=== PATIENT | female | born 1945 | race American Indian/Alaskan Native ===

== ENCOUNTER 2019-02-06 19:44 | Emergency (ER) | payer MEDICARE ==
[2019-02-06] MEDS ORDERED: TORADOL IV ONE (20:21)
[2019-02-06] MEDS ORDERED: BENADRYL IV ONE (20:22)
[2019-02-06] MEDS ORDERED: IMITREX PO ONE (20:24)
[2019-02-06] MEDS ORDERED: ZOFRAN IV ONE (20:25)
[2019-02-06] MEDS ORDERED: ULTRAM PO ONE (20:57)
--- NOTE | 2019-02-06 21:35 | Emergency Department Report ---
ED General Adult HPI - General Chief complaint: Headache Stated complaint: MIGRAINE AND EARACHE Time Seen by Provider: 02/06/19 20:10 Source: patient Mode of arrival: Ambulatory Limitations: No Limitations - History of Present Illness Initial comments: Patient is a 73-year-old -[place] female with a history of chronic migraine headaches who presents to the ED with acute exacerbation of chronic migraine headaches for the last one month intermittently, worse in the last 2 days. Patient also complains of nausea and photophobia. Patient denies chest pain, shortness of breath, change in vision, vomiting, palpitations, dizziness, neck pain, back pain, nasal and sinus congestion, sore throat, fever or chills, syncope or seizures. Patient states that she has been taking ynea-byo-npttumu medications with no relief. Patient states that she has not been to a neurologist for a long time. Patient also states that she is currently going through stressful moment in her life and that these may contribute significantly for her chronic migraine exacerbations. MD Complaint: Migraine headache exacerbations -: Gradual, month(s) (1) Location: head Radiation: non-radiation Severity scale (0 -10): 7 Quality: aching, sharp Consistency: intermittent Improves with: none Worsens with: none Associated Symptoms: denies other symptoms, headaches, nausea/vomiting. denies: confusion, chest pain, cough, diaphoresis, fever/chills, loss of appetite, malaise, rash, seizure, shortness of breath, syncope, weakness Treatments Prior to Arrival: none - Related Data Previous Rx's Medication Instructions Recorded Last Taken Type Promethazine [Phenergan] 25 mg PO Q6HR PRN #24 tab 02/06/19 Unknown Rx tiZANidine [Zanaflex 4mg TAB] 4 mg PO Q8H PRN #15 tablet 02/06/19 Unknown Rx traMADol [Ultram] 50 mg PO Q6HR PRN #15 tablet 02/06/19 Unknown Rx Allergies Allergy/AdvReac Type Severity Reaction Status Date / Time acetaminophen [From Fioricet] Allergy Nausea Verified 02/06/19 19:52 butalbital [From Fioricet] Allergy Nausea Verified 02/06/19 19:52 caffeine [From Fioricet] Allergy Nausea Verified 02/06/19 19:52 metoclopramide [From Reglan] Allergy Unknown Verified 02/06/19 19:52 prochlorperazine Allergy Unknown Verified 02/06/19 19:52 [From Compazine] ED Review of Systems ROS: Stated complaint: MIGRAINE AND EARACHE Other details as noted in HPI Constitutional: denies: chills, fever Eyes: denies: eye pain, eye discharge, vision change ENT: denies: ear pain, throat pain Respiratory: denies: cough, shortness of breath, wheezing Cardiovascular: denies: chest pain, palpitations Endocrine: no symptoms reported Gastrointestinal: nausea. denies: abdominal pain, vomiting, diarrhea, hematemesis, hematochezia Genitourinary: denies: urgency, dysuria, discharge Musculoskeletal: denies: back pain, joint swelling, arthralgia Skin: denies: rash, lesions Neurological: headache. denies: weakness, paresthesias Psychiatric: denies: anxiety, depression Hematological/Lymphatic: denies: easy bleeding, easy bruising ED Past Medical Hx - Past Medical History Previous Medical History?: No Hx Headaches / Migraines: Yes - Surgical History Past Surgical History?: Yes Additional Surgical History: C/SX2 - Social History Smoking Status: Never Smoker Substance Use Type: None - Medications Home Medications: Home Medications Medication Instructions Recorded Confirmed Last Taken Type Promethazine [Phenergan] 25 mg PO Q6HR PRN #24 tab 02/06/19 Unknown Rx tiZANidine [Zanaflex 4mg TAB] 4 mg PO Q8H PRN #15 tablet 02/06/19 Unknown Rx traMADol [Ultram] 50 mg PO Q6HR PRN #15 tablet 02/06/19 Unknown Rx ED Physical Exam - General Limitations: No Limitations General appearance: alert, in no apparent distress - Head Head exam: Present: atraumatic, normocephalic, normal inspection - Eye Eye exam: Present: normal appearance, PERRL, EOMI. Absent: scleral icterus, conjunctival injection, nystagmus Pupils: Present: normal accommodation - ENT ENT exam: Present: normal exam, normal orophraynx, mucous membranes moist, TM's normal bilaterally, normal external ear exam - Neck Neck exam: Present: normal inspection, full ROM - Respiratory Respiratory exam: Present: normal lung sounds bilaterally. Absent: respiratory distress, wheezes, rhonchi, chest wall tenderness, accessory muscle use, decreased breath sounds, prolonged expiratory - Cardiovascular Cardiovascular Exam: Present: normal rhythm, tachycardia, normal heart sounds. Absent: systolic murmur, diastolic murmur, rubs, gallop - GI/Abdominal GI/Abdominal exam: Present: soft, normal bowel sounds. Absent: tenderness, guarding, rebound, hyperactive bowel sounds, hypoactive bowel sounds, organomegaly, mass, bruit - Rectal Rectal exam: Present: deferred - Extremities Exam Extremities exam: Present: normal inspection, full ROM, normal capillary refill - Back Exam Back exam: Present: normal inspection, full ROM. Absent: tenderness, CVA tenderness (R), CVA tenderness (L), muscle spasm - Neurological Exam Neurological exam: Present: alert, oriented X3, CN II-XII intact, normal gait, reflexes normal - Psychiatric Psychiatric exam: Present: normal affect, normal mood, anxious - Skin Skin exam: Present: warm, dry, intact, normal color. Absent: rash ED Course Vital Signs 02/06/19 02/06/19 02/06/19 19:52 20:26 20:46 Temperature 98.1 F Pulse Rate 107 H 93 H Respiratory 16 16 Rate Blood Pressure 132/87 O2 Sat by Pulse 97 Oximetry 02/06/19 21:13 Temperature Pulse Rate Respiratory 16 Rate Blood Pressure O2 Sat by Pulse Oximetry - Reevaluation(s) Reevaluation #1: 02/06/19 21:35 Patient is alert and oriented 3 and is not in distress but anxious and tachycardic in triage. Patient was treated in the ED for migraine headaches with medications. On reevaluation, the patient's pain is well controlled, the tachycardia resolved. Patient was discharged home on medications and patient was referred to [facility] for follow-up and subsequent neurology referral by the clinic. Patient advised to contact the clinic to schedule an appointment. Patient advised to return to the ED immediately if symptoms get worse. ED Medical Decision Making - Medical Decision Making Patient is alert and oriented 3 and is not in distress but anxious and tachycardic in triage. Patient was treated in the ED for migraine headaches with medications. On reevaluation, the patient's pain is well controlled, the tachycardia resolved. Patient was discharged home on medications and patient was referred to [facility] for follow-up and subsequent neurology referral by the clinic. Patient advised to contact the clinic to schedule an appointment. Patient advised to return to the ED immediately if symptoms get worse. - Differential Diagnosis Chronic Migraine headache; Anxiety and depression; Chronic pain syndrome Critical care attestation.: If time is entered above; I have spent that time in minutes in the direct care of this critically ill patient, excluding procedure time. ED Disposition Clinical Impression: Headache, chronic migraine without aura Qualifiers: Status migrainosus presence: with status migrainosus Intractability: not intractable Qualified Code(s): G43.701 - Chronic migraine without aura, not intractable, with status migrainosus Disposition: TO HOME OR SELFCARE Is pt being admited?: No Does the pt Need Aspirin: No Condition: Stable Instructions: Migraine Headache (ED) Additional Instructions: Take medications with food, drink plenty of fluids and follow-up with [facility] care and for his subsequent neurology referral. Return to the ED immediately if symptoms get worse. Prescriptions: Promethazine [Phenergan] 25 mg PO Q6HR PRN #24 tab PRN Reason: Nausea traMADol [Ultram] 50 mg PO Q6HR PRN #15 tablet PRN Reason: Pain tiZANidine [Zanaflex 4mg TAB] 4 mg PO Q8H PRN #15 tablet PRN Reason: Spasms Referrals: TARYN BIRMINGHAM MD [Primary Care Provider] - 3-5 Days [facility] [Outside] - 3-5 Days Time of Disposition: 21:38 Print Language: MOLDOVAN
[2019-02-06 21:48] VITALS: BP 151/92
== END 2019-02-06 22:09 | disposition home or self-care (01) ==
LOC: ED 19:44
DX: G43.701 Chronic migraine without aura, not intractable, with status migrainosus (principal); Z79.899 Other long term (current) drug therapy; Z88.8 Allergy status to other drugs, medicaments and biological substances
CPT/HCPCS: 96374; 96375; 99283; J1885; J2405; J1200

== ENCOUNTER 2019-02-12 11:18 | Emergency (ER) | payer MEDICARE ==
--- NOTE | 2019-02-12 11:37 | Emergency Department Report ---
Blank Doc - Documentation Documentation: This is a 73-year-old female that presents with acute on chronic intermittent headache. Patient also stated has chest pain describes as heavy chest pressure. Also has some SOB. Had an MRI last week within normal limits. This initial assessment/diagnostic orders/clinical plan/treatment(s) is/are subject to change based on patient's health status, clinical progression and re- assessment by fellow clinical providers in the ED. Further treatment and workup at subsequent clinical providers discretion. Patient/guardians urged not to elope from the ED as their condition may be serious if not clinically assessed and managed. Initial orders include: 1- Patient sent to MAIN for further evaluation and treatment 2- labs 3- EKG 4- CXR
[2019-02-12 12:09] LABS: Basophils # (Auto) 0.1 K/mm3 (0.0-0.1); Basophils % (Auto) 1.5 % (0.0-1.8); Eosinophils # (Auto) 0.2 K/mm3 (0.0-0.4); Eosinophils % (Auto) 3.6 % (0.0-4.3); Hematocrit 34.7 % (30.3-42.9); Hemoglobin 11.3 gm/dl (10.1-14.3); Lymphocytes # (Auto) 1.5 K/mm3 (1.2-5.4); Lymphocytes % (Auto) 31.9 % (13.4-35.0); Mean Corpuscular HGB Conc 33 % (30-34); Mean Corpuscular Volume 96 fl (79-97); Monocytes # (Auto) 0.3 K/mm3 (0.0-0.8); Platelet Count 249 K/mm3 (140-440); Red Cell Distribution Width 19.4 % (13.2-15.2)
[2019-02-12 12:20] LABS: BUN/Creatinine Ratio 12; Blood Urea Nitrogen 12 mg/dL (7-17); Calcium 9.4 mg/dL (8.4-10.2); Hemolysis Index 16
--- NOTE | 2019-02-12 12:23 | XRay Report ---
PA AND LATERAL CXR HISTORY: Chest pain. COMPARISON: None. FINDINGS: Cardiomediastinal silhouette: Normal cardiac size. Normal mediastinal contours. Lungs: Mildly hyperexpanded and hyperlucent in the upper lung greenberg. No airspace disease. No pleur al effusions. No pneumothorax. Pulmonary vascularity: Normal. Support hardware: None. Additional findings: None. IMPRESSION: 1. COPD. No acute cardiopulmonary process. Signer Name: Jarrett Tucker MD Signed: 02/12/2019 12:18 PM Workstation Name: [id number]
[2019-02-12 12:45] LABS: INR 0.99 (0.87-1.13)
[2019-02-12 12:46] LABS: Partial Thromboplastin Time 20.8 Sec. (24.2-36.6)
[2019-02-12] MEDS ORDERED: NACL 0.9% 1000 ML 1,000 ML IV ONE (13:48)
[2019-02-12] MEDS ORDERED: TORADOL IV ONE (13:48)
[2019-02-12] MEDS ORDERED: ZOFRAN IV ONE ×2 (13:48→15:34)
[2019-02-12] MEDS ORDERED: ULTRAM PO ONE (13:48)
--- NOTE | 2019-02-12 16:07 | Emergency Department Report ---
ED Headache HPI - General Chief Complaint: Chest Pain Stated Complaint: HEADACHE Time Seen by Provider: 02/12/19 11:35 - History of Present Illness Initial Comments: Patient is a 73-year-old asthmatic female presented with headache. Please see below for details on her headache. In addition to the headache patient states occasionally she does get heavy chest pain and feels as a bar across her chest. This usually associated with her headaches and is accompanied by nausea. She denies any diaphoresis cough cold or congestion. Timing/Duration: other (3 days) Quality: moderate Head Injury Location: frontal, temporal, parietal Recent Head Trauma: frequent headaches, chronic headaches Associated Symptoms: fatigue, nausea/vomiting. denies: confusion, facial pain, fever/chills, flushing, loss of consciousness, nasal congestion, nasal drainage, numbness in legs/feet, seizures, sinus infection, stiff neck, vision changes Allergies/Adverse Reactions: Allergies acetaminophen [From Fioricet] Allergy (Verified 02/06/19 19:52) Nausea butalbital [From Fioricet] Allergy (Verified 02/06/19 19:52) Nausea caffeine [From Fioricet] Allergy (Verified 02/06/19 19:52) Nausea metoclopramide [From Reglan] Allergy (Verified 02/06/19 19:52) Unknown prochlorperazine [From Compazine] Allergy (Verified 02/06/19 19:52) Unknown Home Medications: Ambulatory Orders Promethazine [Phenergan] 25 mg PO Q6HR PRN #24 tab 02/06/19 tiZANidine [Zanaflex 4mg TAB] 4 mg PO Q8H PRN #15 tablet 02/06/19 traMADol [Ultram] 50 mg PO Q6HR PRN #15 tablet 02/06/19 Ondansetron [Zofran Odt] 4 mg PO Q8HR #10 tab.rapdis 02/12/19 traMADol [Ultram] 50 mg PO Q6HR PRN #12 tablet 02/12/19 ED Review of Systems ROS: Stated complaint: HEADACHE Other details as noted in HPI Comment: All other systems reviewed and negative ED Past Medical Hx - Past Medical History Previous Medical History?: Yes Hx Headaches / Migraines: Yes - Surgical History Past Surgical History?: Yes Additional Surgical History: C section - Social History Smoking Status: Never Smoker Substance Use Type: None - Medications Home Medications: Home Medications Medication Instructions Recorded Confirmed Last Taken Type Promethazine [Phenergan] 25 mg PO Q6HR PRN #24 tab 02/06/19 Unknown Rx tiZANidine [Zanaflex 4mg TAB] 4 mg PO Q8H PRN #15 tablet 02/06/19 Unknown Rx traMADol [Ultram] 50 mg PO Q6HR PRN #15 tablet 02/06/19 Unknown Rx Ondansetron [Zofran Odt] 4 mg PO Q8HR #10 tab.rapdis 02/12/19 Unknown Rx traMADol [Ultram] 50 mg PO Q6HR PRN #12 tablet 02/12/19 Unknown Rx ED Physical Exam - General Limitations: No Limitations General appearance: alert, in no apparent distress - Head Head exam: Present: atraumatic, normocephalic - Eye Eye exam: Present: normal appearance, PERRL, EOMI - ENT ENT exam: Present: mucous membranes moist - Neck Neck exam: Present: normal inspection - Respiratory Respiratory exam: Present: normal lung sounds bilaterally. Absent: respiratory distress, wheezes, rales - Cardiovascular Cardiovascular Exam: Present: regular rate, normal rhythm, normal heart sounds. Absent: systolic murmur, diastolic murmur, rubs, gallop - GI/Abdominal GI/Abdominal exam: Present: soft, normal bowel sounds. Absent: distended, tenderness, guarding, rebound - Extremities Exam Extremities exam: Present: normal inspection - Back Exam Back exam: Present: normal inspection - Neurological Exam Neurological exam: Present: alert, oriented X3, CN II-XII intact, normal gait. Absent: motor sensory deficit - Psychiatric Psychiatric exam: Present: normal affect, normal mood - Skin Skin exam: Present: warm, dry, intact, normal color. Absent: rash ED Course Vital Signs 02/12/19 02/12/19 02/12/19 11:35 14:46 14:47 Temperature 98.0 F Pulse Rate 104 H Respiratory 20 18 18 Rate Blood Pressure 129/79 O2 Sat by Pulse 98 Oximetry 02/12/19 15:02 Temperature Pulse Rate Respiratory 18 Rate Blood Pressure O2 Sat by Pulse 99 Oximetry ED Medical Decision Making - Lab Data Result diagrams: 02/12/19 11:42 02/12/19 11:42 - EKG Data -: EKG Interpreted by Me EKG shows normal: sinus rhythm, axis, intervals, QRS complexes, ST-T waves Rate: normal - EKG Data Interpretation: normal EKG - Medical Decision Making Patient was hydrated and given meds for symptomatic relief. Headache has improved. Patient's chest pain-free at this time and stated that her chest pain was earlier today and this is a regular occurrence. Patient will be referred to [facility]. Consultation request form has been sent Critical care attestation.: If time is entered above; I have spent that time in minutes in the direct care of this critically ill patient, excluding procedure time. ED Disposition Clinical Impression: Chronic migraine, Atypical chest pain Disposition: - TO HOME OR SELFCARE Is pt being admited?: No Does the pt Need Aspirin: No Condition: Stable Instructions: Chest Pain (ED), Migraine Headache (ED) Referrals: KENNY ANDRADE MD [Primary Care Provider] - 3-5 Days [facility] [Provider Group] - 3-5 Days [facility] [Provider Group] - 3-5 Days WHITLEY FINCH MD [Referring] - 3-5 Days MAKAYLA HAQUE MD [Staff Physician] - 3-5 Days Time of Disposition: 16:11 Heart Score - HEART Score History: Slightly suspicious EKG: Non-specific Age: > 65 Risk factors: No known risk factors Troponin: < normal limit HEART Score: 3
[2019-02-12 17:02] VITALS: BP 160/90
== END 2019-02-12 16:50 | disposition home or self-care (01) ==
LOC: ED 11:18
DX: G43.709 Chronic migraine without aura, not intractable, without status migrainosus (principal); R07.89 Other chest pain; R11.2 Nausea with vomiting, unspecified; Z88.8 Allergy status to other drugs, medicaments and biological substances
CPT/HCPCS: 36415; 71046; 80048; 84484; 85025; 85610; 85730; 93005; 93010; 96361; 96374; 96375; 96376; 99284; J1885; J2405; J7030